=== PATIENT | male | born 1985 | race Caucasian/White ===

== ENCOUNTER 2018-11-18 12:41 | Day surgery (SDC) | payer OTHER ==
--- NOTE | 2018-11-18 13:29 | C.PDOC ---
History Of Present Illness 33 y/o M c PSHx tonsillectomy 5 days ago p/w bleeding from mouth. Patient states he woke up this morning spitting up blood, seeing clots. Reports mild lightheadedness. States bleeding has slowed but continues to spit up blood. Denies chest pain, dyspnea, syncope. IZZY Talamantes Time Seen by Provider: 11/18/18 13:06 Chief Complaint (Nursing): ENT Problem Past Medical History Vital Signs: Last Vital Signs Temp 97.9 F 11/18/18 12:48 Pulse 95 H 11/18/18 12:48 Resp 18 11/18/18 12:48 BP 122/89 11/18/18 12:48 Pulse Ox 97 11/18/18 12:48 Surgical History: Cholecystectomy, Tonsillectomy Family History: States: No Known Family Hx - Social History Hx Alcohol Use: Yes Hx Substance Use: No - Immunization History Hx Tetanus Toxoid Vaccination: No Hx Pneumococcal Vaccination: No Review Of Systems Except As Marked, All Systems Reviewed And Found Negative. Constitutional: Negative for: Fever Cardiovascular: Negative for: Chest Pain Physical Exam - Physical Exam Additional Physical Exam Comments: gen nad head nc/at eyes perrl ent neck supple cv reg rate lungs no acc muscle use abd soft extremities no edema neuro alert ED Course And Treatment - Laboratory Results Result Diagrams: 11/18/18 13:52 11/18/18 13:52 O2 Sat by Pulse Oximetry: 97 Medical Decision Making Medical Decision Making: Dr. Talamantes came to ED, evaluated patient at bedside, will take patient to OR. Disposition - Disposition Disposition: HOSPITALIZED Disposition Time: 14:39 Condition: GUARDED Forms: [facility] (M[place]itanian) - Clinical Impression Clinical Impression: Post-tonsillectomy hemorrhage
[2018-11-18 13:56] LABS: BASO % 0.5 % (0.0-2.0); EOS # 0.2 K/uL (0.0-0.7); HEMOGLOBIN 15.1 g/dL (12.0-18.0); LYMPH # 1.3 K/uL (1.0-4.3); LYMPH % 15.9 % (20.0-40.0); MEAN CORPUSCULAR HEMOGLOBIN 19.8 pg (27.0-31.0); MEAN CORPUSCULAR HGB CONC 32.3 g/dL (33.0-37.0); MEAN PLATELET VOLUME 8.8 fL (7.2-11.7); MONO # 0.8 K/uL (0.0-0.8); MONO % 10.5 % (0.0-10.0); NEUT # 5.7 K/uL (1.8-7.0); NEUT % 71.1 % (50.0-75.0); NRBC % 0.3 % (0.0-2.0); RBC 7.65 Mil/uL (4.40-5.90); RED CELL DISTRIBUTION WIDTH 15.5 % (11.5-14.5)
[2018-11-18 13:59] LABS: MEAN CELL VOLUME 61.3 fL (80.0-94.0)
[2018-11-18 14:05] LABS: INR 1.2; PROTHROMBIN TIME 13.2 SECONDS (9.7-12.2)
[2018-11-18 14:09] LABS: ALB/GLOB RATIO 1.2 (1.0-2.1); ALBUMIN 5.3 g/dL (3.5-5.0); ALT/SGPT 50 U/L (21-72); AST/SGOT 33 U/L (17-59); BLOOD UREA NITROGEN 14 mg/dL (9-20); CALCIUM 9.4 mg/dl (8.6-10.4); GFR NON-AFRICAN AMERICAN > 60
[2018-11-18] MEDS ORDERED: Morphine 10 mg/5 ml Oral Soln PO PRN (19:36)
[2018-11-18] MEDS ORDERED: Propofol 10 mg/ml Inj (20 ML) ONE ×2 (19:37→19:56)
[2018-11-18] MEDS ORDERED: Succinylcholine Chloride 20 mg/ml Syr (5 ml) IV ONE (19:39)
[2018-11-18] MEDS ORDERED: Dextrose 5%/0.45% NS 1,000 ML IV SCH (19:45)
[2018-11-18] MEDS ORDERED: HYDROmorphone 0.5 mg/0.5 ml ISec IVP PRN (20:39)
[2018-11-18 21:04] VITALS: O2SAT 100
[2018-11-18 22:36] VITALS: BP 117/77; PULSE 100; RESP 13; TEMP 98.8
--- NOTE | 2018-11-19 01:51 | OP ---
PROCEDURE DATE: 11/18/2018 PREOPERATIVE DIAGNOSIS: Post-tonsillectomy bleeding. POSTOPERATIVE DIAGNOSIS: Post-tonsillectomy bleeding. PROCEDURE: Control of post-tonsillectomy bleeding. SIGNIFICANT FINDING: Bleeding area noted in the left tonsillar fossa. DESCRIPTION OF PROCEDURE: The patient was brought into the room and placed in the supine position. Anesthesia was initiated through an ET tube. The patient was draped in the usual manner. 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 Blood clot was noted in the left tonsillar fossa and removed. The bleeding area was on the mid tonsillar fossa. Sutures were used to control the bleeding. Another area of bleeding was noted in the superior tonsillar fossa. Suction cautery was used to control that bleeding. The area was irrigated with saline. No bleeding was noted. An OG tube was placed. Blood was suctioned out of the stomach. Mouth gag was let down for 30 seconds, put back up, no bleeding was noted. Mouth gag was taken out and removed. The patient was taken off anesthesia and taken to recovery room in stable manner. Humberto Talamantes MD
== END 2018-11-18 22:20 | disposition home or self-care (01) ==
LOC: C.ER 12:41 → C.SDS 19:05 → UNDOADMIN 19:05 → C.9S 19:05 → C.6T 20:12 → C.SDS 22:20
PROVIDERS: ATTEND Otolaryngology
DX: K91.841 Postprocedural hemorrhage of a digestive system organ or structure following other procedure (principal); Y83.8 Other surgical procedures as the cause of abnormal reaction of the patient, or of later complication, without mention of misadventure at the time of the procedure
CPT/HCPCS: 42960; 80053; 85025; 85610; 85730; 86850; 86900; 99285; J1100; J1170; J2001; J2405; J2704; J2765; J3010; J7120

== ENCOUNTER 2018-11-24 09:38 | Day surgery (SDC) | payer OTHER | END 2018-11-24 13:30 | disposition home or self-care (01) | LOC: C.ER 09:38 → C.SDS 10:18 | CPT/HCPCS: 42962; 99285; J0690; J1100; J2001; J2250; J2405; J2704; J2765; J3010; J7030; J7040; J7120 ==